=== PATIENT | female | born 1970 | race Caucasian/White ===

== ENCOUNTER 2023-09-25 09:05 | Day surgery (SDC) | payer MEDICARE, MEDICAID ==
[~2023-09-25] VITALS: Ht 168.9 cm; Wt 188.8 kg
[2023-09-25] VITALS (21 sets, daily range): BP systolic 111–159; BP diastolic 44–76; PULSE 77–121; RESP 13–25; TEMP 98.3; O2SAT 94–99
[2023-09-25 10:06] LABS: BASOPHILS # (AUTO) 0.1 X10'3 (0-0.2); BASOPHILS % (AUTO) 0.5 % (0-1); LYMPHOCYTES # (AUTO) 2.2 X10'3 (1.1-4.8); MONOCYTES # (AUTO) 0.7 X10'3 (0-0.9); NEUTROPHILS # (AUTO) 10.5 X10'3 (1.8-7.7); NEUTROPHILS % (AUTO) 75.9 % (42-75); WHITE BLOOD COUNT 13.9 X10'3 (4.5-11.0)
[2023-09-25 10:08] LABS: EOSINOPHILS # (AUTO) 0.4 X10'3 (0-0.9); EOSINOPHILS % (AUTO) 2.7 % (0-6); HEMATOCRIT 46.7 % (35.0-45.0); HEMOGLOBIN 15.2 g/dl (12.0-16.0); LYMPHOCYTES % (AUTO) 16.1 % (21-51); MEAN CORPUSCULAR HEMOGLOBIN 27.6 PG (27.0-31.0); MEAN CORPUSCULAR HGB CONC 32.5 g/dL (33.0-36.5); MEAN CORPUSCULAR VOLUME 84.8 FL (78-98); MEAN PLATELET VOLUME 9.1 FL (7.4-10.4); MONOCYTES % (AUTO) 4.8 % (2-12); PLATELET COUNT 229 X10'3 (140-440); RED BLOOD COUNT 5.51 X10'6 (4.20-5.60); RED CELL DISTRIBUTION WIDTH 16.8 % (11.5-14.5)
[2023-09-25] MEDS ORDERED: ATOR-2 PO (10:12)
[2023-09-25] MEDS ORDERED: ALB0.5UD (10:12)
[2023-09-25] MEDS ORDERED: multivitamin (10:12)
[2023-09-25] MEDS ORDERED: CETI10TA14 PO (10:12)
[2023-09-25] MEDS ORDERED: INSU500I SQ (10:12)
[2023-09-25] MEDS ORDERED: MEDR10TA10 PO (10:12)
[2023-09-25] MEDS ORDERED: calcium (10:12)
[2023-09-25] MEDS ORDERED: OXYB5TAB21 PO (10:12)
[2023-09-25] MEDS ORDERED: PREG100C56 PO (10:12)
[2023-09-25] MEDS ORDERED: ibu (10:12)
[2023-09-25] MEDS ORDERED: LEVO150T8 PO (10:12)
[2023-09-25] MEDS ORDERED: fish oil (10:12)
[2023-09-25] MEDS ORDERED: ASPI-1397 PO (10:12)
[2023-09-25] MEDS ORDERED: PRAM0.5T12 PO (10:12)
[2023-09-25] MEDS ORDERED: MONT-40 PO (10:12)
[2023-09-25] MEDS ORDERED: vitamin c (10:12)
[2023-09-25] MEDS ORDERED: EMPA25TA PO (10:12)
[2023-09-25] MEDS ORDERED: DOCU-395 PO (10:12)
[2023-09-25] MEDS ORDERED: magnesium (10:12)
[2023-09-25] MEDS ORDERED: FERR325T34 PO (10:12)
[2023-09-25] MEDS ORDERED: CARV12.545 PO (10:12)
[2023-09-25] MEDS ORDERED: MULT-207 (10:12)
[2023-09-25] MEDS ORDERED: ESOM40CA66 PO (10:12)
[2023-09-25] MEDS ORDERED: INSU300I3 (10:12)
[2023-09-25] MEDS ORDERED: FLUT1BLS16 INH (10:16)
[2023-09-25] MEDS ORDERED: TRIA1TAB5 PO (10:16)
[2023-09-25] MEDS ORDERED: NITR0.4T51 SL (10:16)
[2023-09-25 10:20] LABS: ALBUMIN 3.1 G/DL (3.4-5.0); ANION GAP 12 (8-16); BLOOD UREA NITROGEN 18 MG/DL (7-18); BUN/CREATININE RATIO 15.9 (10.0-20.0); CALCIUM 9.2 MG/DL (8.5-10.1); CHLORIDE 108 MMOL/L (99-107); CREATININE 1.13 MG/DL (0.40-0.90); GLUCOSE 93 MG/DL (70-104); MAGNESIUM 2.1 MG/DL (1.5-2.4); POTASSIUM 3.8 MMOL/L (3.5-5.1); SODIUM 145 MMOL/L (135-145); TOTAL CARBON DIOXIDE 25.3 MMOL/L (24-32); eCRCL 54 ML/MIN; eGFR 50 ML/MIN
[2023-09-25 10:23] LABS: PROTHROMBIN TIME 11.2 SECONDS (9.0-12.0)
[2023-09-25] MEDS: fentaNYL/PF 50MCG/1 ML 2ML syringe IV ONE (13:33)
[2023-09-25] MEDS: MIDAZolam 1mg/ml 10ml vial IV ONE (13:33)
[2023-09-25] MEDS: glycopyrrolate 0.2mg/ml inj IV ONE (13:33)
[2023-09-25] MEDS ORDERED: FLEC100T PO (14:27)
[2023-09-25] MEDS: flecainide 50mg tablet PO ONE (14:28)
== END 2023-09-25 14:33 | disposition home or self-care (01) ==
LOC: SSTAY O 09:05
PROVIDERS: ATTEND Internal Medicine Cardiovascular Disease
DX: I48.91 Unspecified atrial fibrillation (principal); I49.1 Atrial premature depolarization; I25.10 Atherosclerotic heart disease of native coronary artery without angina pectoris; I10 Essential (primary) hypertension; E11.9 Type 2 diabetes mellitus without complications; E66.01 Morbid (severe) obesity due to excess calories; E78.5 Hyperlipidemia, unspecified; Z86.73 Personal history of transient ischemic attack (TIA), and cerebral infarction without residual deficits; Z68.44 Body mass index [BMI] 60.0-69.9, adult
CPT/HCPCS: 36415; 80048; 82948; 83735; 85025; 85610; 92960; 93005; 93325; C8925; J2250; J3010; J3490; J7030; 93312